=== PATIENT | male | born 1970 | race Hispanic/Latino ===

== ENCOUNTER 2022-02-03 09:46 | Outpatient (RCR) | payer BC | END 2022-02-06 | LOC: PT 09:46 | PROVIDERS: ATTEND Physician Assistant | DX: S42.251D Displaced fracture of greater tuberosity of right humerus, subsequent encounter for fracture with routine healing (principal) ==

== ENCOUNTER 2022-03-05 14:00 | Outpatient (RCR) | payer BC | END 2022-03-09 | LOC: PT 14:00 | PROVIDERS: ATTEND Physician Assistant | DX: S42.251D Displaced fracture of greater tuberosity of right humerus, subsequent encounter for fracture with routine healing (principal) ==

== ENCOUNTER → 2022-04-08 | Outpatient (RCR) | payer BC | LOC: PT 03-10 09:30 | PROVIDERS: ATTEND Physician Assistant | DX: S42.251D Displaced fracture of greater tuberosity of right humerus, subsequent encounter for fracture with routine healing (principal) ==